=== PATIENT | female | born 1960 | race Caucasian/White ===

== ENCOUNTER 2017-06-25 09:03 | Day surgery (SDC) | payer OTHER ==
[~2017-06-25] VITALS: Ht 170.2 cm; Wt 102.7 kg
[~2017-06-25 09:03] MED LIST: ACET500; ALBU90OI INH; ALBU90OI6 INH; AMOCLA875 PO; CONESTTC; CYCL10 PO; DHEA; EVAMIST; GUAPSEER PO; HYDACE5; HYDCHL12.5 PO; HYDGUAL120 PO; HYDR10; OXYACE5T PO; RXHYDGUAS PO; SERT50 PO; TESTOSTERONE; ZOLM2.5 PO
[2017-06-25] MEDS ORDERED: HYDCHL12.5 (09:27)
[2017-06-25] MEDS ORDERED: Desyrel50 MG (09:27)
[2017-06-25] MEDS ORDERED: LOSA25 (09:27)
[2017-06-25] MEDS ORDERED: ELET40TA (09:28)
[2017-06-25] MEDS ORDERED: MONT10T (09:28)
== END 2017-06-25 11:08 | disposition home or self-care (01) ==
LOC: ORSCSDS 09:03
PROVIDERS: Internal Medicine Gastroenterology
PROC: 0DJD8ZZ Inspection of Lower Intestinal Tract, Via Natural or Artificial Opening Endoscopic (ICD-10-PCS; principal; 2017-06-25 10:15)
DX: Z12.11 Encounter for screening for malignant neoplasm of colon (principal); Z83.71 Family history of colonic polyps; I10 Essential (primary) hypertension; K57.30 Diverticulosis of large intestine without perforation or abscess without bleeding; E66.9 Obesity, unspecified; Z68.36 Body mass index [BMI] 36.0-36.9, adult; K21.9 Gastro-esophageal reflux disease without esophagitis; Z79.899 Other long term (current) drug therapy
CPT/HCPCS: J7120

== ENCOUNTER → 2019-01-28 | Outpatient (CLI) | payer OTHER ==
[~2019-01-28] MED LIST changes: +Desyrel50 MG; +ELET40TA; +HYDCHL12.5; +LOSA25; +MONT10T
[2019-01-30 14:06] LABS: HPV 16 Negative (Negative); HPV 18 Negative (Negative); HPV OTHER HR TYPES Negative (Negative)
== END | disposition home or self-care (01) ==
LOC: LAB SHORT 15:34 → LAB 15:34
PROVIDERS: Nurse Practitioner Women's Health
DX: Z12.72 Encounter for screening for malignant neoplasm of vagina (principal); Z91.89 Other specified personal risk factors, not elsewhere classified
CPT/HCPCS: 87624; G0123

== ENCOUNTER 2024-03-13 12:12 | Day surgery (SDC) | payer BC ==
[~2024-03-13] VITALS: Ht 167.6 cm; Wt 101.1 kg
[~2024-03-13 12:12] MED LIST changes: +Lactated Ringer's 1,000 ML IV ONE; +propofoL 50 ML IV ONE
[2024-03-13] MEDS ORDERED: OMEP20ER PO (13:00)
[2024-03-13] MEDS ORDERED: XARELTO20 MG PO (13:00)
[2024-03-13] MEDS ORDERED: BREYNA 80-4.510.3 GM (13:00)
[2024-03-13] MEDS ORDERED: Triamcinolone A15 G2 (13:01)
[2024-03-13] MEDS ORDERED: Lactated Ringer's 1,000 ML IV ONE (13:48)
[2024-03-13 15:20] VITALS: BP 112/68
--- NOTE | 2024-03-13 15:24 | NUR ---
03/13/24 1524 Bushra Whitten D/C INSTRUCTIONS GIVEN TO PT, VERBAILZED UNDERSTANDING. PT WHEELING OUT TO PRIVATE VEHICLE, WILL BE DRIVEN HOME BY . PT HAS ALL BELONGINGS W/ HER. NO VISIBLE SIGNS OF DISTRESS NOTED.
== END 2024-03-13 15:20 | disposition home or self-care (01) ==
LOC: ORSCSDS 12:12
PROVIDERS: Internal Medicine Gastroenterology
PROC: 0DJD8ZZ Inspection of Lower Intestinal Tract, Via Natural or Artificial Opening Endoscopic (ICD-10-PCS; principal; 2024-03-13 13:30)
DX: K58.2 Mixed irritable bowel syndrome (principal); R19.5 Other fecal abnormalities; Z80.0 Family history of malignant neoplasm of digestive organs; K21.9 Gastro-esophageal reflux disease without esophagitis; Z86.718 Personal history of other venous thrombosis and embolism; Z79.01 Long term (current) use of anticoagulants; Z79.899 Other long term (current) drug therapy
CPT/HCPCS: J2704; J7120